=== PATIENT | female | born 1995 | race Caucasian/White ===

== ENCOUNTER → 2022-11-28 | Day surgery (SDC) | payer BC ==
[2022-11-23 13:57] VITALS: BP 139/91
[~2022-11-28] VITALS: Ht 157.4 cm; Wt 88.5 kg
[~2022-11-28] MED LIST: TOPCARE OMEPRAZ20 MG PO; WELLBUTRIN SR150 MG PO
[2022-11-28 09:40] VITALS: BP 135/55
[2022-11-28 11:40] VITALS: BP 113/74
[2022-11-28 11:55] VITALS: BP 113/72
[2022-11-28 12:10] VITALS: BP 123/55
[2022-11-28 12:25] VITALS: BP 115/70
[2022-11-28 12:40] VITALS: BP 113/68
== END ==
LOC: SDC 11-23 14:00
PROVIDERS: ATTEND Obstetrics & Gynecology
DX: Z30.2 Encounter for sterilization (principal); K21.9 Gastro-esophageal reflux disease without esophagitis; F32.A Depression, unspecified; Z98.890 Other specified postprocedural states